=== PATIENT | female | born 1990 | race Caucasian/White ===

== ENCOUNTER 2019-08-07 14:09 | Outpatient (RCR) | payer OTHER, SELFPAY ==
[2019-08-09] MEDS: RHO(D) IMMUNE GLOBULIN 300 MCG SYRINGE IM (14:38)
== END 2019-11-05 23:59 | disposition home or self-care (01) ==
LOC: ANHLAB 14:09
PROVIDERS: PCP Family Medicine; Visit Provider Obstetrics & Gynecology
DX: Z29.13 Encounter for prophylactic Rho(D) immune globulin (principal); O36.0990 Maternal care for other rhesus isoimmunization, unspecified trimester, not applicable or unspecified; Z3A.00 Weeks of gestation of pregnancy not specified
CPT/HCPCS: 36415; 85461; 90384; 96372; J2790

== ENCOUNTER 2019-10-19 21:05 | Observation (INO) | payer OTHER, SELFPAY ==
--- NOTE | 2019-10-19 21:05 | OBADM ---
This patient, Paris Parra, admitted to the OB room Labor/Delivery/Recovery 119 for observation. Patient/family oriented to hospital policies and general routines including ID bracelet, bed and alarms, visiting hours, pain management, procedures, bathroom and other care routines, personal items, smoking policy, room service/diet, and visiting hours. Patient/Family are encouraged to report perceived risks to care and to ask questions if they do not understand what they are told or what they should do.
[2019-10-19 22:16] VITALS: TEMP 36.6
--- NOTE | 2019-10-19 22:44 | PC.NURSE ---
Updated Dr. Tam on maternal assessment; including contractions, SVE, vital signs and FHT. Orders received.
[2019-10-19] MEDS: DEXTROSE 5%/LACTATED RINGERS 1,000 ML 999 ML IV CONT (23:08)
--- NOTE | 2019-10-19 23:57 | PC.NURSE ---
updated Dr. Tam of maternal assessment. Patient contractions decreased following IV fluid bolus. Patient states she is feeling better following fluids. Discharge orders received.
[2019-10-20 00:11] VITALS: BP 123/78; PULSE 112
--- NOTE | 2019-10-20 07:28 | PM.OBTRLD ---
OB - Triage/Final Diagnosis Visit Information Date of evaluation: 10/19/19 Reason for evaluation: threatened labor Evaluation Vital signs: Vital Signs - 24 hr 10/19/19 22:16 10/20/19 00:11 Temperature 97.9 F Pulse Rate 112 H Blood Pressure 123/78
== END 2019-10-20 00:10 | disposition home or self-care (01) ==
PROVIDERS: Admitting Provider Obstetrics & Gynecology; PCP Family Medicine; Visit Provider Obstetrics & Gynecology
DX: O47.1 False labor at or after 37 completed weeks of gestation (principal); Z3A.38 38 weeks gestation of pregnancy
CPT/HCPCS: 96360; G0378; G0379; J7121

== ENCOUNTER 2019-10-23 12:05 | Outpatient (CLI) | payer OTHER, SELFPAY ==
[2019-10-23 12:37] LABS: Hematocrit 33.9 % (37.0-47.0); Hemoglobin 11.8 g/dL (12.0-15.0); Mean Corpuscular HGB Conc 34.8 g/dl (32-36); Mean Corpuscular Hemoglobin 31.2 pg (26-34); Mean Corpuscular Volume 89.7 fl (80-100); Mean Platelet Volume 11.3 fl (7.4-10.4); Platelet Count Result 265 k/mm3 (150-375); Red Blood Count 3.78 M/mm3 (4.2-5.4); Red Cell Distribution Width 13.4 % (11.5-14.5); White Blood Count 11.4 K/mm3 (4.5-10.0)
[2019-10-24 09:31] LABS: Rapid Plasma Reagin Non-Reactive (NonReactive)
== END 2019-10-23 12:06 | disposition home or self-care (01) ==
PROVIDERS: PCP Family Medicine; Visit Provider Obstetrics & Gynecology
DX: Z01.818 Encounter for other preprocedural examination (principal)
CPT/HCPCS: 36415; 85027; 86592; 86850; 86880; 86900; 86901; 86902

== ENCOUNTER 2019-10-24 11:23 | Inpatient (IN) | payer OTHER, SELFPAY ==
--- NOTE | 2019-10-02 14:13 | PC.NURSE ---
VERIFIED WITH OR SCHEDULE AND PATIENT--C/S ON 10/24/19 AT 1330 PATIENT GIVEN REQUISITION FOR LAB DRAW ON 10/23/19
--- NOTE | 2019-10-19 23:45 | WPDANESEPPF ---
Anes - Initial Pre Proc Eval Procedure: Operation Date: 10/24/19 13:30 Proposed Procedures p Repeat Section - Levon Koch MD Date/Time: 10/19/19 23:45 Surgeon: Levon Koch MD Pre Op Diagnosis: Pre-admit Patient Data Age: 29 Gender: F Height: Weight: Allergies Allergy/AdvReac Type Severity Reaction Status Date / Time gluten Allergy Gastrointestinal Verified 10/02/19 13:42 Upset latex Allergy Itching Verified 10/02/19 13:42 pineapple Allergy Numbness Verified 10/02/19 13:42 Patient hx anesthesia problems: none Family hx anesthesia problems: none PMFSH Surgical History Surgical History (Updated 10/19/19 @ 23:46 by Rachid Larson MD) History of section Family History Family History Other Unknown family medical history Social History Social History Substance use: never Spiritual care concerns: No Anes - Eval Final PreProcedure Day of Procedure 10/19/19 23:45 Patient weight: overweight Heart: regular rate and rhythm Lungs: clear to auscultation Airway: Mallampati scale class II Neurological: alert and oriented Last oral intake: 4 hours ASA classification: II Emergent: no Anesthetic plan: proceed Anesthesia type and monitoring: regional spinal and standard monitoring Informed Consent: The patient's anesthetic plan and its attendant risks and benefits were discussed with the patient/family/POA. Questions were solicited and answers provided to the satisfaction of the patient/family/POA.
--- NOTE | 2019-10-23 22:53 | P.HP_ITS ---
H&P: HPI History of Present Illness Date/Time: 10/23/19 22:53 Chief complaint: Pre-admit Narrative: 29 y/o at 39 2/7 weeks here for repeat . She has had a prior and desires repeat . GBS neg. Review of Systems Review of Systems: All systems reviewed & are unremarkable except as noted in HPI and below PMFSH Past Medical History Medical History Gestational hypertension Hx of migraines Surgical History Surgical History History of section Family History Family History Other Unknown family medical history Social History Social History Substance use: never Spiritual care concerns: No Meds Home Medications and Allergies Allergies Allergy/AdvReac Type Severity Reaction Status Date / Time gluten Allergy Gastrointestinal Verified 10/20/19 00:24 Upset latex Allergy Itching Verified 10/20/19 00:24 pineapple Allergy Numbness Verified 10/20/19 00:24 Exam Const: Orientation/consciousness: patient oriented x3 Other: Well- developed, well-nourished female in no acute distress. Neck: Thyroid: thyroid normal Lymphatic: no lymphadenopathy noted (in neck, axilla or inguinal nodes) Resp: Effort & Inspection: normal respiratory effort Auscultation: clear to auscultation bilaterally Cardio: Rate: regular rate Rhythm: regular rhythm Heart sounds: S1 normal heart sound present and S2 normal heart sound present GI: Other: ABD: Soft, nontender, nondistended, gravid. FHR ausculatated. FH 39cm. : General: Yes no CVA tenderness Other: Cervix closed / thick. Back/Spine/Pelvis: Back: no CVA tenderness Skin: General skin exam: normal color and no rashes or lesions noted Neuro: General: patient oriented x3 Extrem: Other: Extremities: nontender with no edema Psych: Mental Status: mental status grossly normal Affect: normal affect Assessment and Plan Assessment and plan (1) History of section: Code(s): Z98.891 - History of uterine scar from previous surgery Status: Acute Assessment and Plan: A: IUP at 39 2/7 weeks Prior , desiring repeat. P: She desires repeat . She understands risks of surgery to include risks of anesthesia, risks of pain, infection, bleeding, blood products, thromboembolic phenomena and damage to adjacent structures such as bowel, bladder, ureters, blood vessels and nerves. She understands all these risks and elects to proceed with surgery.
[2019-10-24] VITALS (63 sets, daily range): BP systolic 59–131; BP diastolic 37–92; PULSE 63–154; RESP 12–20; TEMP 36.2–37.4; O2SAT 97–100; BMI 33.8
[2019-10-24] MEDS: LACTATED RINGERS 1,000 ML 125 ML IV CONT ×2 (12:19→13:14)
--- NOTE | 2019-10-24 12:44 | WPDANESEPPF ---
Anes - Initial Pre Proc Eval Procedure: Operation Date: 10/24/19 13:30 Proposed Procedures p Repeat Section - Levon Koch MD Date/Time: 10/24/19 12:44 Surgeon: Levon Koch MD Pre Op Diagnosis: scheduled Patient Data Age: 29 Gender: F Height: 5 ft 2 in Weight: 84 kg Last Vital Signs Temp 37.4 C 10/24/19 12:26 Pulse 103 H 10/24/19 12:26 Resp 20 10/24/19 12:26 BP 123/87 10/24/19 12:26 Allergies Allergy/AdvReac Type Severity Reaction Status Date / Time gluten Allergy Gastrointestinal Verified 10/20/19 00:24 Upset latex Allergy Itching Verified 10/20/19 00:24 pineapple Allergy Numbness Verified 10/20/19 00:24 Home Medications Medication Instructions Recorded Confirmed Type PNV cmb#95-ferrous fumarate-FA 1 tablet PO DAILY 10/24/19 10/24/19 History [] Patient hx anesthesia problems: none Family hx anesthesia problems: none PMFSH Past Medical History Medical History Gestational hypertension Hx of migraines Surgical History Surgical History History of section Family History Family History Other No known health problems Social History Social History Smoking status: Never smoker Second hand tobacco smoke exposure: No Substance use: never Spiritual care concerns: No Anes - Eval Final PreProcedure Day of Procedure 10/24/19 12:44 Patient weight: overweight Heart: regular rate and rhythm Lungs: clear to auscultation Airway: Mallampati scale class II Neurological: alert and oriented Last oral intake: >/= 8 hours ASA classification: II Emergent: no Anesthetic plan: proceed Anesthesia type and monitoring: regional spinal and standard monitoring Informed Consent: The patient's anesthetic plan and its attendant risks and benefits were discussed with the patient/family/POA. Questions were solicited and answers provided to the satisfaction of the patient/family/POA.
--- NOTE | 2019-10-24 13:14 | WPDHPUPDATE1 ---
History and Physical Update Update Date/Time: 10/24/19 13:14 History and Physical has been reviewed, including an updated exam of the patient. There are NO changes in the patient's condition. Risks, benefits, and alternatives have been discussed and questions answered. Patient agrees to proceed with procedure.
[2019-10-24] MEDS: ceFAZolin 2 GM/D5W 50 ML 2 GM/50 ML BAG IVPB (13:36)
--- NOTE | 2019-10-24 14:51 | PM.OBPRVD ---
OB - Delivery Note Procedure Procedure: Procedures Operation Date: 10/24/19 13:30 Actual Procedures Side Surgeon p Repeat Section Not Applicable Levon Koch MD Delivery monitor: external FHT and external uterine Route of delivery: Estimated blood loss (mL): 510 Anesthesia type: Spinal Disposition: PACU Complications: None Narrative: The patient was taken to the operating room where she was prepared and draped in the usual sterile fashion in dorsal supine position with a leftward tilt. She received cefazolin preoperatively. Spinal anesthesia was found to be adequate. A Pfannenstiel skin incision was made, excising and discarding the old scar, then carrying through to the underlying layer of the fascia. The fascia was incised in the midline and the incision was extended laterally. The fascia was dissected free of the underlying rectus muscles. The rectus muscles were in the midline. The peritoneum was identified, tented up and entered sharply. The peritoneal incision was extended superiorly and inferiorly with good visualization of the bladder. The bladder blade was placed. The vesicouterine peritoneum was identified, tented up and entered sharply. The incision was extended laterally and the bladder flap was developed. The bladder blade was replaced. The uterus was then incised sharply in a transverse fashion along the lower uterine segment. The incision was extended laterally. The 's head was delivered atraumatically to the sterile field, followed by the body. The nose and mouth were bulb suctioned. After a delay, the cord was clamped and cut. The was handed off the field. Cord blood was collected. The placenta was removed manually and was passed off the field. The uterus was exteriorized and cleared of all clots and debris. The uterine incision was reapproximated using 0 Monocryl in a running, locked fashion. Excellent hemostasis resulted as did excellent reapproximation of the normal anatomy. The uterus was returned the abdomen. The pelvis was irrigated copiously with warmed normal saline. Rigorous hemostasis was assured. The fascial layer was reapproximated using 0 Vicryl in a running fashion. The skin was closed with a running, subcuticular stitch of 4 0 Vicryl. Dermaflex was applied externally. Sponge, lap, needle and instrument counts were correct. The patient was taken to the recovery room in stable condition. The went to the nursery in stable condition. I was present and scrubbed the entire procedure. Baby Date of : 10/24/19 Time of : 14:11 Weeks of gestation at delivery: 39 gender: Female Weight (pounds): 7 Weight (ounces): 11 presentation: vertex Placenta delivery description: Manual Removal and Normal Configuration cord vessel description: 3 Vessels score one minute: 6 score five minutes: 8
[2019-10-24] MEDS: DOCUSATE SODIUM 100 MG CAPSULE PO (17:20)
[2019-10-24] MEDS: IBUPROFEN 600 MG TABLET PO (17:20)
[2019-10-24] MEDS: DEXTROSE 5%/0.45% SOD CHL 1,000 ML 125 ML IV CONT (21:10)
[2019-10-25] MEDS: IBUPROFEN 600 MG TABLET PO ×3 (03:43→17:56)
[2019-10-25] MEDS: SIMETHICONE 80 MG TAB.CHEW PO ×6 (03:45→21:24)
[2019-10-25 04:45] VITALS: BP 108/66; PULSE 70; RESP 16; TEMP 36.8; O2SAT 99
[2019-10-25 05:33] LABS: Basophils Percent Auto 0.2 % (0.2-1.2); Eosinophils Percent Auto 0.1 % (0-4.4); Hematocrit 26.9 % (37.0-47.0); Hemoglobin 9.2 g/dL (12.0-15.0); Immature Granulocyte Percent A 0.6 % (0-0.5); Lymphocytes Absolute Auto 1.86 K/mm3 (0.9-3.2); Lymphocytes Percent Auto 11.8 % (18.3-44.2); Mean Corpuscular HGB Conc 34.2 g/dl (32-36); Mean Corpuscular Hemoglobin 31.1 pg (26-34); Mean Corpuscular Volume 90.9 fl (80-100); Mean Platelet Volume 11.4 fl (7.4-10.4); Monocytes Absolute Auto 1.7 K/mm3 (0.1-0.6); Monocytes Percent Auto 10.6 % (2.6-8.5); Neutrophils Absolute Auto 12.1 K/mm3 (1.3-6.7); Neutrophils Percent Auto 76.7 % (45.5-73.1); Platelet Count Result 243 k/mm3 (150-375); Red Blood Count 2.96 M/mm3 (4.2-5.4); Red Cell Distribution Width 13.3 % (11.5-14.5); White Blood Count 15.8 K/mm3 (4.5-10.0)
--- NOTE | 2019-10-25 07:27 | WPDANLDPN2 ---
Anes-Prog Note L&D Date/Time: 10/25/19 07:27 Comfortable throughout: section Neuraxial method: spinal Epidural/Spinal procedure site: clean & non-tender Neuro status: Neuro function grossly intact. Cardiovascular status: normal Respiratory status: normal Airway patency: baseline Mental status: baseline Post-Op hydration status: normal Vital Signs: Last Vital Signs Temp 36.8 C 10/25/19 04:45 Pulse 70 10/25/19 04:45 Resp 16 10/25/19 04:45 BP 108/66 10/25/19 04:45 Pulse Ox 99 10/25/19 04:45 I/O: Intake & Output 10/24/19 10/24/19 10/25/19 15:59 23:59 07:59 Intake Total 1150 1200 Output Total 710 1439 4601 Balance 440 -228 -1869 Post-procedural complaints: none Patient feedback: Patient satisfied with anesthetic care.
--- NOTE | 2019-10-25 07:28 | WPDANLDNPN2 ---
Anes-Prog Note L&D-Neuraxial Date/Time: 10/25/19 07:28 Neuraxial medications: intrathecal PF morphine Patient feedback: Patient satisfied with post-operative pain management.
--- NOTE | 2019-10-25 07:53 | P.DS_ITS ---
DS: Admitting Diagnosis Admitting Diagnosis Admitting Diagnosis: IUP at 39 weeks Prior DS: Discharge Diagnosis Discharge Diagnosis (1) History of section: Code(s): Z98.891 - History of uterine scar from previous surgery Status: Acute OB - DS: Summary OB Procedures : None OB Procedures Intrapartum: OB Procedures: : None Peripartum Data Procedures: Procedures Operation Date: 10/24/19 13:30 Actual Procedures Side Surgeon p Repeat Section Not Applicable Levon Koch MD DS: Data Data Completed and Pending Labs on day of discharge: Labs from last 24 hours 10/25/19 10/25/19 04:50 04:50 WBC 15.8 H RBC 2.96 L Hgb 9.2 L Hct 26.9 L MCV 90.9 MCH 31.1 MCHC 34.2 RDW 13.3 Plt Count 243 MPV 11.4 H Immature Gran % (Auto) 0.6 H Neut % (Auto) 76.7 H Lymph % (Auto) 11.8 L [place] % (Auto) 10.6 H Eos % (Auto) 0.1 Baso % (Auto) 0.2 Lymph # (Auto) 1.86 [place] # (Auto) 1.7 H Eos # (Auto) 0.0 Baso # (Auto) 0.0 Abs Immat Gran (auto) 0.10 H Absolute Neuts (auto) 12.1 H Absolute Nucleated RBC 0.0 Nucleated RBC % 0.0 Blood Type Pending Antibody Screen TNP Screen Pending Baby's Blood Type O pos Baby's ALEX Negative Doses of RhIg Required Pending Discharge Plan Discharge Attending physician on discharge: Levon Koch Discharging Clinician: Levon Koch Patient Disposition: Home, Self-Care Activity: may shower, may drive after 2 weeks and pelvic rest Diet: regular Wound Care Instructions: incision open to air Discharge Instructions: Call or return if temperature above 100.4? F, increased abdominal pain, increased vaginal bleeding or any new problems. Stand Alone Forms: General Discharge Information Follow-up/Referrals: Levon Koch MD [Physician] - (4 weeks) Discharge Medications: New ibuprofen 600 mg tablet 600 mg PO Q6H PRN (Reason: cramps) Qty: 30 RF: 0 hydrocodone-acetaminophen [[place]] 5-325 mg tablet 1 - 2 tablet PO Q6H PRN (Reason: pain) Qty: 30 RF: 0 ferrous sulfate 325 mg (65 mg iron) tablet 325 mg PO DAILY Qty: 30 RF: 0 No Action PNV cmb#95-ferrous fumarate-FA [] 28 mg iron- 800 mcg Tablet 1 tablet PO DAILY RF: 0 Date of admission: 10/24/19 11:23 Primary Care Provider: Hailey,Marcela Reagan Admitting Provider: Levon Koch Attending physician on admission: Levon Koch
--- NOTE | 2019-10-25 07:53 | PM.OBPNVD ---
OB - PN: Subj Subjective Date/time seen: 10/25/19 07:53 Narrative: Pain OK. Tolerating diet. OB - PN: Obj Data Labs CBC & Chem 7: 10/25/19 04:50 Labs: Laboratory Results - last 24 hr 10/25/19 10/25/19 04:50 04:50 WBC 15.8 H RBC 2.96 L Hgb 9.2 L Hct 26.9 L MCV 90.9 MCH 31.1 MCHC 34.2 RDW 13.3 Plt Count 243 MPV 11.4 H Immature Gran % (Auto) 0.6 H Neut % (Auto) 76.7 H Lymph % (Auto) 11.8 L [place] % (Auto) 10.6 H Eos % (Auto) 0.1 Baso % (Auto) 0.2 Lymph # (Auto) 1.86 [place] # (Auto) 1.7 H Eos # (Auto) 0.0 Baso # (Auto) 0.0 Abs Immat Gran (auto) 0.10 H Absolute Neuts (auto) 12.1 H Absolute Nucleated RBC 0.0 Nucleated RBC % 0.0 Antibody Screen TNP Baby's Blood Type O pos Baby's ALEX Negative OB - PN A/P Plan Comments: A: POD#1, doing well. P: Routine care. Exam Narrative: Exam Narrative: AVSS I/O OK ABD soft, nontender, fundus firm. Incision c/d/i. EXT nontender
[2019-10-25 08:15] VITALS: BP 104/63; PULSE 70; RESP 16; TEMP 36.6; O2SAT 99
[2019-10-25] MEDS: MULTIVIT/MIN/PREN/FOL AC/IRON TABLET 1 TAB PO (08:29)
[2019-10-25] MEDS: DOCUSATE SODIUM 100 MG CAPSULE PO ×2 (08:29→17:55)
[2019-10-25] MEDS: POLYSACCHARIDE IRON COMPLEX 150 MG CAPSULE PO ×2 (08:29→17:55)
[2019-10-25] MEDS: RHO(D) IMMUNE GLOBULIN 300 MCG SYRINGE IM (10:51)
[2019-10-25 11:30] VITALS: BP 103/69; PULSE 79; RESP 18; TEMP 36.4; O2SAT 98
--- NOTE | 2019-10-25 15:45 | PC.NURSE ---
Consulted with patient, mother states has been spitty and was not eagerly . Parents began with supplementation after a few feedings. Infant is taking up to 30 mls. Mother reports infant is more awake and less spitty to day. Mother is concerned she does not have colostrum. Demonstrated self expression, colostrum easily expresses. is at bedside showing feeding cues. Reviewed feeding cues, frequencies, duration of feedings, feeding elimination flow sheet, and signs of adequate intake. Demonstrated stimulation techniques to wake for feeding. Assisted with to breast. Reviewed positioning/alignment in cross cradle, holding breast in U hold and guided asymmetrical latch on. Infant was able to latch correctly. nursed eagerly, with steady draws and frequent swallowing noted. Reviewed signs of a correct latch, effective nursing and suck swallow ratio. would pull back and release latch while feeding. Advised to give slight resistance when draws back and to compress breast while bring infant forward to latch. Mother independently corrected. was able to maintain latch without discomfort to mother. Nipple care reviewed. Advised to stimulate to keep awake and nursing effectively for increased intake and to assist with maintaining deep latch. Instructed mother to call out for RN assistance if she is unable to latch infant for feeding or she has discomfort with nursing. Instructed feeding should be initiated three hours from start of last feeding or if feeding cues are noted before. Mother voiced understanding of information shared. Parents state they will continue to offer supplement after breastfeedings. Suggested to offer both breast and attempt to limit supplement to 15mls.
--- NOTE | 2019-10-25 16:34 | PC.NURSE ---
Addendum entered by Virgil Trent RN 10/25/19 16:34: actual time was 1452 Original Note: PT introductions made and plan of care discussed per post op c section, pain management, breast feeding, daily care activities. PT verbalized understanding of such care.
[2019-10-25] MEDS: LANOLIN (LANSINOH) 7.5 GM CREAM 1 APPLIC TOPICAL (18:02)
[2019-10-25 20:50] VITALS: BP 106/69; PULSE 80; RESP 16; TEMP 36.1; O2SAT 99
[2019-10-26] MEDS: IBUPROFEN 600 MG TABLET PO ×4 (00:48→22:40)
[2019-10-26] MEDS: DOCUSATE SODIUM 100 MG CAPSULE PO ×2 (07:54→16:40)
[2019-10-26] MEDS: MULTIVIT/MIN/PREN/FOL AC/IRON TABLET 1 TAB PO (07:55)
[2019-10-26] MEDS: POLYSACCHARIDE IRON COMPLEX 150 MG CAPSULE PO ×2 (07:55→16:40)
[2019-10-26 08:10] VITALS: BP 104/70; PULSE 82; RESP 18; TEMP 36.6; O2SAT 98
--- NOTE | 2019-10-26 08:49 | PM.OBPNVD ---
OB - PN: Subj Subjective Date/time seen: 10/26/19 08:49 Narrative: Pain OK. Tolerating diet. OB - PN: Obj Data Labs CBC & Chem 7: 10/25/19 04:50 Labs: Laboratory Results - last 24 hr 10/25/19 04:50 Blood Type A Negative Antibody Screen TNP Screen Negative Baby's Blood Type O pos Baby's ALEX Negative Doses of RhIg Required 1 OB - PN A/P Plan Comments: A: POD#2, doing well. P: Routine care. Exam Narrative: Exam Narrative: AVSS I/O OK ABD soft, nontender, fundus firm. Incision c/d/i. EXT nontender
--- NOTE | 2019-10-26 10:30 | PC.NURSE ---
Mother is able to independently latch infant with appropriate positioning/alignment. She denies any nipple discomfort, is feeding as required and waking to feed if needed. has had several effective feedings in the past 24 hours, and is currently meeting outcomes for weight, output, jaundice and feeding frequencies. Mother chooses to supplement at times after , reporting she is supplementing less and less often, as infant is more satisfied with . Mother feels her milk is transitioning in. Mother states she feels confident to continue effective at home. Reviewed transition to breast milk, signs of adequate intake, and engorgement/relief. Instructed to call ICP if intake/output less than required. Reviewed regular medications mother is taking. Information provided per [place]. Reviewed community resources on the [facility] website and in the Mom/Baby guide. Information on outpatient services provided. Mother has no further questions at this time.
[2019-10-26] MEDS: SIMETHICONE 80 MG TAB.CHEW PO ×3 (15:40→22:40)
[2019-10-26 19:05] VITALS: BP 126/77; PULSE 86; RESP 16; TEMP 36.8
[2019-10-27] MEDS: SIMETHICONE 80 MG TAB.CHEW PO ×4 (01:50→12:51)
[2019-10-27] MEDS: IBUPROFEN 600 MG TABLET PO ×2 (05:05→12:52)
[2019-10-27 09:00] VITALS: BP 118/76; PULSE 81; RESP 16; RESP 18; TEMP 36.5; O2SAT 100
--- NOTE | 2019-10-27 09:00 | PC.NURSE ---
Patient viewed the discharge video Mother & Baby Care, The First Two Weeks . Patient was given the opportunity and encouraged to ask questions. Patient verbalized understanding of information shared and has been given the mother/baby guide for home reference.
--- NOTE | 2019-10-27 09:00 | PC.NURSE ---
PT introductions made and plan of care discussed per post op c section, pain management, breast feeding, daily care activities and pending discharge to home. PT verbalized understanding of such care.
[2019-10-27] MEDS: DOCUSATE SODIUM 100 MG CAPSULE PO (09:15)
[2019-10-27] MEDS: POLYSACCHARIDE IRON COMPLEX 150 MG CAPSULE PO (09:15)
[2019-10-27] MEDS: MULTIVIT/MIN/PREN/FOL AC/IRON TABLET 1 TAB PO (09:15)
--- NOTE | 2019-10-27 12:09 | PM.OBPNVD ---
OB - PN: Subj Subjective Date/time seen: 10/27/19 12:09 Narrative: Pain OK. Tolerating diet. Would like to go home. OB - PN: Obj Data Labs CBC & Chem 7: 10/25/19 04:50 OB - PN A/P Plan Comments: A: POD#2, doing well. P: Home to f/u 4 weeks. Exam Narrative: Exam Narrative: AVSS ABD soft, nontender, fundus firm. Incision c/d/i. EXT nontender
--- NOTE | 2019-10-27 13:30 | PC.NURSE ---
PT received discharge instructions per protocol and verbalized understanding of such instructions.
--- NOTE | 2019-10-27 14:20 | PC.NURSE ---
PT discharged to home ambulatory accompanied by spouse and and taken to waiting car. Follow up appts confirmed
[2019-10-29 08:57] VITALS: BP 126/84; PULSE 86; RESP 16; TEMP 37; O2SAT 99
[2019-10-29 09:32] VITALS: BP 126/84; PULSE 86; RESP 16; TEMP 37; O2SAT 99
== END 2019-10-27 14:20 | disposition home or self-care (01) | DRG 788 ==
LOC: ANHLDR 14:58 → ANHOB2 17:07
PROVIDERS: Admitting Provider Obstetrics & Gynecology; PCP Family Medicine; Visit Provider Obstetrics & Gynecology
PROC: 10D00Z1 Extraction of Products of Conception, Low, Open Approach (ICD-10-PCS; CPT 59514; principal; 2019-10-24 13:30)
DX: O34.211 Maternal care for low transverse scar from previous cesarean delivery (principal); Z37.0 Single live birth; Z3A.39 39 weeks gestation of pregnancy; O13.4 Gestational [pregnancy-induced] hypertension without significant proteinuria, complicating childbirth
CPT/HCPCS: 36415; 85025; 85027; 85461; 86592; 86850; 86880; 86900; 86901; 90384; A9270; J0131; J0690; J1100; J2274; J2370; J2405; J2790; J7120

== ENCOUNTER 2019-11-30 13:21 | Emergency (ER) | payer OTHER, SELFPAY ==
[2019-11-30] VITALS (21 sets, daily range): BP systolic 116–133; BP diastolic 82–100; PULSE 78–115; RESP 12–34; TEMP 37.2; O2SAT 98–100
--- NOTE | ~2019-11-30 | XR_ITS ---
XR chest 2V DATE: 11/30/2019 15:20 INDICATION: Left and right chest pain starting 2 weeks ago. Recent section. TECHNIQUE: PA and lateral views COMPARISON: None FINDINGS: Normal heart size. No hilar or mediastinal enlargement. No pulmonary infiltrate or consolid ation, pleural effusion or pulmonary vascular congestion or pneumothorax. Included skeletal structure s are unremarkable. IMPRESSION: Negative Reviewed, dictated and finalized at location B. IMPRESSION: Negative
--- NOTE | 2019-11-30 13:23 | ED.CHESTPAIN ---
HPI - Chest Pain General Chief Complaint: Dizziness Stated Complaint: Left Shoulder Pain, Chest Pain Time Seen by Provider: 11/30/19 13:23 History of Present Illness HPI narrative: 29 yo female presents from [facility] for dizziness. She has been intermittently dizzy since waking up this morning. She reports it as a spinning feeling. She has it even when she closes her eys and lays down. This is associated with nausea and at least 1 episode of vomiting. She also reports intermittent pain in the posterior aspect of the left shoulder radiating into the upper back. She has also had a few breif episodes of sharp substernal chest pain. She gave by October 23. No pain or swelling in the calfs. No SOB. Related Data Home Medications Medication Instructions Recorded Confirmed PNV cmb#95-ferrous fumarate-FA 1 tablet PO DAILY 10/24/19 10/24/19 [] lactobacillus combination no.8 11/30/19 [Adult Probiotic] omega 6-frx-ynm-fish oil [Fish Oil] cap PO 11/30/19 Allergies Allergy/AdvReac Type Severity Reaction Status Date / Time gluten Allergy Gastrointestinal Verified 11/30/19 14:43 Upset latex Allergy Itching Verified 11/30/19 14:43 pineapple Allergy Numbness Verified 11/30/19 14:43 Review of Systems Review of Systems: All systems reviewed & are unremarkable except as noted in HPI and below Constitutional: Constitutional: Denies chills, Denies fever(s) and Denies weakness Eyes: Eyes: Denies change in vision ENT: Reports dizziness Cardiovascular: Cardiovascular: Reports chest pain and Reports radiating jaw, neck or arm pain Respiratory: Respiratory: Denies cough and Denies dyspnea Gastrointestinal: Gastrointestinal: Reports nausea and Reports vomiting Genitourinary: Genitourinary: Denies abnormal vaginal bleeding, Denies hematuria, Denies dysuria and Denies vaginal discharge Musculoskeletal: Musculoskeletal: Reports back pain Neurologic: Reports dizziness [facility] Social History Social History Smoking status: Never smoker Second hand tobacco smoke exposure: No Substance use: never Spiritual care concerns: No Exam Const: General: healthy appearing, no acute distress and alert Orientation/consciousness: patient oriented x3 HENMT: Head: normal to inspection Neck: Neck: normal visual inspection and no lymphadenopathy Chest: Chest palpation & inspection: no tenderness Resp: Effort & Inspection: normal respiratory effort Auscultation: clear to auscultation bilaterally, no rales, no rhonchi and no wheezes Cardio: Jugular venous distension: no JVD Rate: regular rate Rhythm: regular rhythm Heart sounds: no murmurs GI: Inspection: non-distended GI Palp: Yes Soft to palpation and No Tenderness to palpation present (GI) Skin: General skin exam: normal color Neuro: General: patient oriented x3 and moves all extremities Speech: normal speech Extrem: General: no edema Psych: Appearance: well kempt Affect: normal affect Course Vital Signs Vital signs: Vital Signs Pulse Rate 97 11/30/19 13:27 Respiratory Rate 12 11/30/19 13:27 Blood Pressure 125/96 H 11/30/19 13:27 Pulse Oximetry 100 11/30/19 13:27 Temperature 37.2 C 11/30/19 13:29 Pulse Rate 78 11/30/19 16:01 Respiratory Rate 14 11/30/19 16:01 Blood Pressure 119/82 11/30/19 16:01 Pulse Oximetry 100 11/30/19 16:01 MDM - Chest Pain Differential Diagnosis Differential diagnosis: Likely pneumothorax, costochondritis, chest pain and other Medical Records Data Attestation: I reviewed the patient's medical records. Lab Data Attestation: I reviewed the patient's lab results. Result diagrams: 11/30/19 13:37 11/30/19 13:37 Labs: Lab Results 11/30/19 11/30/19 Range/Units 13:37 13:37 WBC 12.0 H (4.5-10.0) K/mm3 RBC 4.38 (4.2-5.4) M/mm3 Hgb 13.1 D (12.0-15.0) g/dL Hct 39.1 (37.0-47
--- NOTE | 2019-11-30 13:32 | ECG_ITS ---
Measurements Intervals [place] Rate: 106 P: 44 CO: 154 QRS: 56 QRSD: 82 T: -16 QT: 329 QTc: 438 Interpretive Statements SINUS TACHYCARDIA EARLY PRECORDIAL R/S TRANSITION ST-T WAVE ABNORMALITY IN ANTEROLAT/INF LEADS- CONSIDER ISCHEMIA BASELINE ARTIFACT- I, II ABNORMAL ECG Electronically Signed On 11-30-2019 14:32:03 CDT by Onel Meléndez D.O.
[2019-11-30 13:42] LABS: Basophils Percent Auto 0.3 % (0.2-1.2); Eosinophils Percent Auto 0.3 % (0-4.4); Hematocrit 39.1 % (37.0-47.0); Hemoglobin 13.1 g/dL (12.0-15.0); Immature Granulocyte Absolute 0.03 K/mm3 (0.00-0.031); Immature Granulocyte Percent A 0.3 % (0-0.5); Lymphocytes Absolute Auto 1.68 K/mm3 (0.9-3.2); Mean Corpuscular HGB Conc 33.5 g/dl (32-36); Mean Corpuscular Hemoglobin 29.9 pg (26-34); Mean Corpuscular Volume 89.3 fl (80-100); Mean Platelet Volume 10.6 fl (7.4-10.4); Monocytes Absolute Auto 0.5 K/mm3 (0.1-0.6); Monocytes Percent Auto 4.2 % (2.6-8.5); Neutrophils Absolute Auto 9.7 K/mm3 (1.3-6.7); Neutrophils Percent Auto 80.9 % (45.5-73.1); Platelet Count Result 317 k/mm3 (150-375); Red Blood Count 4.38 M/mm3 (4.2-5.4); Red Cell Distribution Width 12.9 % (11.5-14.5)
[2019-11-30 13:54] LABS: Anion Gap 10 mmol/L (8-16); Blood Urea Nitrogen 15 mg/dL (7-17); Calcium 9.5 mg/dL (8.4-10.2); Carbon Dioxide 27 mmol/L (22-30); Chloride 105 mmol/L (98-107); Estimated CRCL calculation 91 ml/min; Estimated Glomerular Filt Rate > 60; Glucose 100 mg/dL (65-105); Sodium 142 mmol/L (137-145)
[2019-11-30 14:06] LABS: Troponin I < 0.012 ng/mL (0.000-0.034)
[2019-11-30] MEDS: SODIUM CHLORIDE 0.9% IV 1,000 ML 999 ML IV CONT (14:31)
[2019-11-30] MEDS: MECLIZINE HCL 25 MG TABLET PO (14:31)
== END 2019-11-30 16:35 | disposition home or self-care (01) ==
PROVIDERS: Emergency Provider Emergency Medicine; PCP Family Medicine
DX: R42 Dizziness and giddiness (principal); R07.89 Other chest pain; M54.6 Pain in thoracic spine; R00.0 Tachycardia, unspecified; R94.31 Abnormal electrocardiogram [ECG] [EKG]
CPT/HCPCS: 36415; 71046; 80048; 84484; 85025; 93005; 96360; 96361; 99284; A9270; J7030

== ENCOUNTER 2019-12-03 21:21 | Emergency (ER) | payer OTHER, SELFPAY ==
--- NOTE | ~2019-12-03 | CT_ITS ---
EXAMINATION: CT brain wo con DATE: 12/04/2019 02:33 INDICATION: Dizziness, lightheadedness. TECHNIQUE: Computed tomography (CT) of the head was performed without intravenous contrast. The mA wa s adjusted according to patient size. Iterative reconstruction technique was employed. Exam dose: 60 5.33 mGy-cm total exam DLP. COMPARISON: None FINDINGS: No intracranial mass lesion or hemorrhage or cerebrovascular accident. Normal ventricular s ize. No midline shift or mass effect. No subdural or epidural hematoma. No fracture or bone destruction of the cranial vault. The mastoid air cells and included paranasal sinuses are normally developed and aerated. No fracture or bone destruction of the cranial vault. IMPRESSION: No significant abnormality Reviewed, dictated and finalized at [facility]. Reviewed, dictated and finalized at location [facility]. IMPRESSION: No significant abnormality
--- NOTE | ~2019-12-03 | XR_ITS ---
EXAMINATION: XR chest 2V DATE: 12/03/2019 22:09 INDICATION: Chest pain and dizziness TECHNIQUE: PA and lateral views of the chest are obtained. COMPARISON: 11/30/2019 FINDINGS: The lungs are free of acute opacities. There is no pleural effusion or pneumothorax. The ca rdiomediastinal silhouette is normal. The visualized bones and soft tissues are unremarkable. IMPRESSION: 1. No acute cardiopulmonary abnormality. Reviewed, dictated and finalized at location [facility].
[2019-12-03 21:22] VITALS: BP 138/101; PULSE 97; RESP 18; TEMP 36.2; O2SAT 100
--- NOTE | 2019-12-03 21:36 | ECG_ITS ---
Measurements Intervals [place] Rate: 78 P: 43 PA: 148 QRS: 38 QRSD: 89 T: 15 QT: 372 QTc: 424 Interpretive Statements SINUS RHYTHM NONSPECIFIC T-WAVE ABNORMALITY- ANT/INF LEADS BORDERLINE ECG Electronically Signed On 12-04-2019 6:39:24 CDT by Onel Meléndez D.O.
[2019-12-03 21:51] LABS: Basophils Percent Auto 0.5 % (0.2-1.2); Eosinophils Absolute Auto 0.1 K/mm3 (0-0.3); Eosinophils Percent Auto 1.3 % (0-4.4); Hematocrit 37.4 % (37.0-47.0); Hemoglobin 12.8 g/dL (12.0-15.0); Immature Granulocyte Absolute 0.02 K/mm3 (0.00-0.031); Immature Granulocyte Percent A 0.3 % (0-0.5); Lymphocytes Absolute Auto 2.27 K/mm3 (0.9-3.2); Lymphocytes Percent Auto 28.4 % (18.3-44.2); Mean Corpuscular HGB Conc 34.2 g/dl (32-36); Mean Corpuscular Hemoglobin 30.4 pg (26-34); Mean Corpuscular Volume 88.8 fl (80-100); Mean Platelet Volume 10.3 fl (7.4-10.4); Monocytes Absolute Auto 0.5 K/mm3 (0.1-0.6); Monocytes Percent Auto 6.5 % (2.6-8.5); Platelet Count Result 335 k/mm3 (150-375); Red Blood Count 4.21 M/mm3 (4.2-5.4); Red Cell Distribution Width 12.8 % (11.5-14.5)
[2019-12-03 22:00] LABS: Prothrombin Time 12.9 Seconds (11.1-14.7)
[2019-12-03 22:02] LABS: Anion Gap 11 mmol/L (8-16); Blood Urea Nitrogen 15 mg/dL (7-17); Calcium 9.6 mg/dL (8.4-10.2); Carbon Dioxide 28 mmol/L (22-30); Chloride 101 mmol/L (98-107); Estimated CRCL calculation 90 ml/min; Estimated Glomerular Filt Rate > 60; Glucose 89 mg/dL (65-105); Potassium 3.9 mmol/L (3.4-5.0); Sodium 140 mmol/L (137-145)
[2019-12-03 22:14] LABS: Troponin I < 0.012 ng/mL (0.000-0.034)
[2019-12-03 23:00] VITALS: BP 128/88; PULSE 88; RESP 17; O2SAT 99
[2019-12-04] VITALS: BP 118/90; PULSE 59; RESP 14; O2SAT 99
[2019-12-04 00:05] VITALS: BP 121/89; BP 134/93; PULSE 63
[2019-12-04 00:06] VITALS: BP 126/92; PULSE 66
[2019-12-04] MEDS: KETOROLAC 30 MG/ML VIAL (*BKC) IV PUSH (00:14)
[2019-12-04] MEDS: SODIUM CHLORIDE 0.9% IV 1,000 ML 999 ML IV CONT ×2 (00:15→02:45)
[2019-12-04 00:55] LABS: Troponin I < 0.012 ng/mL (0.000-0.034)
[2019-12-04] MEDS: MECLIZINE HCL 25 MG TABLET PO (01:32)
--- NOTE | 2019-12-04 01:48 | ED.GENADULT ---
HPI - General Adult General Chief complaint: Back Pain/Injury Stated complaint: back/shoulder pain Time Seen by Provider: 12/03/19 23:08 History of Present Illness HPI narrative: Patient is a 29-year-old female who presents ER with 2 issues. First issue is dizziness. Ongoing for several days. She has rotational spinning dizziness associate with nausea and vomiting. Mildly improved with meclizine at times. Worse with turning head to left and lying back. She also reports while eating dinner try she began to have lightheadedness like she might pass out where things are going black. No abdominal pain or chest pain or racing the heart at that time. Also associated with nausea. Furthermore patient reports that she has been having poor p.o. intake outside of fluid. She reports decreased breast milk production one breast earlier today. Lastly patient reports bilateral back pain between the shoulders. Positional. Improves with pain medication but then returns. Related Data Home Medications Medication Instructions Recorded Confirmed PNV cmb#95-ferrous fumarate-FA 1 tablet PO DAILY 10/24/19 10/24/19 [] lactobacillus combination no.8 11/30/19 [Adult Probiotic] omega 0-res-bhb-fish oil [Fish Oil] cap PO 11/30/19 Allergies Allergy/AdvReac Type Severity Reaction Status Date / Time gluten Allergy Gastrointestinal Verified 11/30/19 14:43 Upset latex Allergy Itching Verified 11/30/19 14:43 pineapple Allergy Numbness Verified 11/30/19 14:43 Review of Systems Review of Systems: All systems reviewed & are unremarkable except as noted in HPI and below Constitutional: Constitutional: Denies chills, Reports fatigue and Denies fever(s) Eyes: Comments: Dizziness ENT: Denies nasal congestion and Denies sore throat Cardiovascular: Cardiovascular: Denies chest pain, Denies rapid heart rate and Denies radiating jaw, neck or arm pain Respiratory: Respiratory: Denies cough and Denies dyspnea Gastrointestinal: Gastrointestinal: Denies abdominal pain, Denies diarrhea, Reports nausea and Reports vomiting Musculoskeletal: Musculoskeletal: Reports back pain and Denies muscle cramps Neurologic: Denies headache(s), Denies focal weakness and Denies numbness PMF Social History Social History Smoking status: Never smoker Second hand tobacco smoke exposure: No Substance use: never Gender identity (if verbalized by the patient): Female Spiritual care concerns: No Exam Narrative: Exam Narrative: GENERAL: Well-appearing, well-nourished, and in no acute distress. HEAD: Normocephalic, atraumatic. EYES: PERRL and EOMI. ENT: TMs normal bilaterally. CHEST: Clear to auscultation. No respiratory distress. HEART: Regular rate and rhythm. Normal peripheral pulses. ABDOMEN: Soft, nontender, nondistended. Back: Paraspinal muscular tenderness over the rhomboid musculature. No scapular midline tenderness. EXTREMITIES: Normal range of motion. No edema. SKIN: Warm, dry, no rash. NEURO: Alert and oriented x3. Course Course Emergency Course: Feels much better after fluids and meclizine. D/c. Vital Signs Vital signs: Vital Signs Temperature 97.2 F L 12/03/19 21:22 Pulse Rate 97 12/03/19 21:22 Respiratory Rate 18 12/03/19 21:22 Blood Pressure 138/101 H 12/03/19 21:22 Pulse Oximetry 100 12/03/19 21:22 Temperature 97.2 F L 12/03/19 21:22 Pulse Rate 56 L 12/04/19 03:07 Respiratory Rate 16 12/04/19 03:07 Blood Pressure 115/78 12/04/19 03:07 Pulse Oximetry 97 12/04/19 03:07 Medical Decision Making Vital Signs Vital Signs: Vital Signs Temperature 97.2 F L 12/03/19 21:22 Pulse Rate 97 12/03/19 21:22 Respiratory Rate 18 12/03/19 21:22 Blood Pressure 138/101 H 12/03/19 21:22 Pulse Oximetry 100 12/03/19 21:22 Temperature 97.2 F L 12/03/19 21:22 Pulse Rate 56 L 12/04/19 03:07 Respiratory Rate 16 1
[2019-12-04 02:00] VITALS: BP 122/81; PULSE 58; RESP 12; O2SAT 99
[2019-12-04 03:07] VITALS: BP 115/78; PULSE 56; RESP 16; O2SAT 97
[2019-12-04 04:07] VITALS: BP 122/88; PULSE 78; RESP 19; O2SAT 99
== END 2019-12-04 04:08 | disposition home or self-care (01) ==
PROVIDERS: Emergency Provider Emergency Medicine; PCP Family Medicine
DX: R42 Dizziness and giddiness (principal); E86.0 Dehydration
CPT/HCPCS: 36415; 70450; 71046; 80048; 84484; 85025; 85610; 85730; 93005; 96361; 96374; 99284; A9270; J1885; J7030

== ENCOUNTER 2021-03-17 07:30 | Outpatient (RCR) | payer BC, SELFPAY ==
[2021-03-17] MEDS: RHO(D) IMMUNE GLOBULIN 300 MCG/2 ML SYRINGE IM (12:15)
== END 2021-06-15 23:59 | disposition home or self-care (01) ==
LOC: ANHLAB 07:30
PROVIDERS: PCP Family Medicine; Visit Provider Obstetrics & Gynecology
DX: Z29.13 Encounter for prophylactic Rho(D) immune globulin (principal); O36.0190 Maternal care for anti-D [Rh] antibodies, unspecified trimester, not applicable or unspecified; Z3A.00 Weeks of gestation of pregnancy not specified
CPT/HCPCS: 36415; 85461; 90384; 96372; J2790

== ENCOUNTER 2021-05-30 07:24 | Outpatient (CLI) | payer BC, SELFPAY ==
[2021-05-30 07:56] LABS: Hematocrit 31.2 % (37.0-47.0); Hemoglobin 10.5 g/dL (12.0-15.0); Mean Corpuscular HGB Conc 33.7 g/dl (32-36); Mean Corpuscular Hemoglobin 31.1 pg (26-34); Mean Corpuscular Volume 92.3 fl (80-100); Mean Platelet Volume 10.6 fl (7.4-10.4); Platelet Count Result 247 k/mm3 (150-375); Red Blood Count 3.38 M/mm3 (4.2-5.4); Red Cell Distribution Width 13.8 % (11.5-14.5); White Blood Count 10.2 K/mm3 (4.5-10.0)
[2021-05-31 13:03] LABS: Rapid Plasma Reagin Non-Reactive (NonReactive)
== END 2021-05-30 07:25 | disposition home or self-care (01) ==
LOC: ANHLAB 07:27
PROVIDERS: PCP Family Medicine; Visit Provider Obstetrics & Gynecology
DX: Z01.818 Encounter for other preprocedural examination (principal)
CPT/HCPCS: 36415; 85027; 86592; 86850; 86880; 86900; 86901; 86902

== ENCOUNTER 2021-06-01 09:51 | Inpatient (IN) | payer BC, SELFPAY ==
[2021-06-01] VITALS (37 sets, daily range): BP systolic 90–126; BP diastolic 42–84; PULSE 52–184; RESP 14–18; TEMP 36.4–36.9; O2SAT 98–100; BMI 31.8; BMI 31.6
[2021-06-01] MEDS: LACTATED RINGERS 1,000 ML 125 ML IV CONT ×2 (10:53→13:23)
--- NOTE | 2021-06-01 11:46 | LDADM ---
This patient, Paris Parra, was admitted to OB Post 116 on 06/01/21 at 09:51. Plans for repeat c/s pain management and were discussed with patient. Patient/family oriented to hospital policies and general routines including ID bracelet, bed and alarms, visiting hours, pain management, procedures, bathroom and other care routines, personal items, smoking policy, room service/diet and guest tray routines, infant security routines, and visiting hours. Patient/Family are encouraged to report perceived risks to care and to ask questions if they do not understand what they are told or what they should do. See [facility] for further documentation.
--- NOTE | 2021-06-01 11:56 | P.PNAN_ITS ---
Anes - Initial Pre Proc Eval Procedure: Operation Date: 06/01/21 12:00 Proposed Procedures p Repeat Section - Levon Koch MD Date/Time: 06/01/21 11:56 Surgeon: Levon Koch MD Pre Op Diagnosis: Repeat Patient Data Age: 30 Gender: F Height: 1.55 m Weight: 76 kg Last Vital Signs Pulse 93 06/01/21 11:51 BP 126/80 06/01/21 11:51 Allergies Allergy/AdvReac Type Severity Reaction Status Date / Time gluten Allergy Gastrointestinal Verified 11/30/19 14:43 Upset latex Allergy Itching Verified 11/30/19 14:43 pineapple Allergy Numbness Verified 11/30/19 14:43 Home Medications Medication Instructions Recorded Confirmed Type PNV cmb#95-ferrous fumarate-FA 1 tablet PO DAILY 10/24/19 06/01/21 History [] Patient hx anesthesia problems: none Family hx anesthesia problems: none Results Review: All pre-operative results and documents have been reviewed as part of the pre-operative evaluation. FOR[facility]LY [facility] Past Medical History Medical History Gestational hypertension Hx of migraines Surgical History Surgical History History of section Family History Family History Other No known health problems Social History Social History Smoking status: Never smoker Second hand tobacco smoke exposure: No Substance use: never Gender identity (if verbalized by the patient): Female Spiritual care concerns: No Anes - Eval Final PreProcedure Day of Procedure 06/01/21 11:56 Patient weight: overweight Heart: regular rate and rhythm Lungs: clear to auscultation Airway: Mallampati scale class 1 Neurological: alert and oriented Last oral intake: >/= 8 hours ASA classification: II Emergent: no Anesthetic plan: proceed Anesthesia type and monitoring: regional spinal and standard monitoring Results Review: All pre-operative results and documents have been reviewed as part of the pre-operative evaluation. Informed Consent: The patient's anesthetic plan and its attendant risks and benefits were discussed with the patient/family/POA. Questions were solicited and answers provided to the satisfaction of the patient/family/POA.
--- NOTE | 2021-06-01 11:59 | P.HP_ITS ---
H&P: HPI History of Present Illness Date/Time: 06/01/21 11:59 30 y/o at 39 6/7 weeks with prior cesareans, here for repeat . Good movement. GBS neg. No contractions. Chief Complaint: Here for c section. Review of Systems Review of Systems: All systems reviewed & are unremarkable except as noted in HPI and below PMFSH Past Medical History Medical History Gestational hypertension Hx of migraines Surgical History Surgical History History of section Family History Family History Other No known health problems Social History Social History Smoking status: Never smoker Second hand tobacco smoke exposure: No Substance use: never Gender identity (if verbalized by the patient): Female Spiritual care concerns: No Meds Home Medications and Allergies Home Medications Medication Instructions Recorded Confirmed Type PNV cmb#95-ferrous fumarate-FA 1 tablet PO DAILY 10/24/19 06/01/21 History [] Allergies Allergy/AdvReac Type Severity Reaction Status Date / Time gluten Allergy Gastrointestinal Verified 11/30/19 14:43 Upset latex Allergy Itching Verified 11/30/19 14:43 pineapple Allergy Numbness Verified 11/30/19 14:43 Vital Signs Vital Signs - 24 hr 06/01/21 10:23 06/01/21 11:51 Pulse Rate 99 93 Blood Pressure 125/81 126/80 Exam Const: Orientation/consciousness: patient oriented x3 Other: Well- developed, well-nourished female in no acute distress. Neck: Thyroid: thyroid normal Lymphatic: no lymphadenopathy noted (in neck, axilla or inguinal nodes) Resp: Effort & Inspection: normal respiratory effort Auscultation: clear to auscultation bilaterally Cardio: Rate: regular rate Rhythm: regular rhythm Heart sounds: S1 normal heart sound present and S2 normal heart sound present GI: Other: ABD: Soft, nontender, nondistended, gravid. NST reactive. TOCO: no contractions. No guarding or rebound tenderness. No hepatosplenomegaly. : General: Yes no CVA tenderness Other: Cervix closed, thick Back/Spine/Pelvis: Back: no CVA tenderness Skin: General skin exam: normal color and no rashes or lesions noted Neuro: General: patient oriented x3 Extrem: Other: Extremities: nontender with no edema Psych: Mental Status: mental status grossly normal Affect: normal affect Assessment and Plan Assessment and plan (1) History of section: Code(s): Z98.891 - History of uterine scar from previous surgery Status: Acute Assessment and Plan: A: IUP at 39 6/7 weeks with prior x 2. P: Desires repeat . She understands risks of surgery to include risks of anesthesia, risks of pain, infection, bleeding, blood products, thromboembolic phenomena and damage to adjacent structures such as bowel, bladder, ureters, blood vessels and nerves. She understands all these risks and elects to proceed with surgery.
--- NOTE | 2021-06-01 12:01 | WPDHPUPDATE1 ---
History and Physical Update Update Date/Time: 06/01/21 12:01 History and Physical has been reviewed, including an updated exam of the patient. There are NO changes in the patient's condition. Risks, benefits, and alternatives have been discussed and questions answered. Patient agrees to proceed with procedure.
[2021-06-01] MEDS: ceFAZolin 2 GM/D5W 50 ML 2 GM/50 ML BAG IVPB (13:57)
--- NOTE | 2021-06-01 14:48 | PM.OBPRVD ---
OB - Delivery Note Procedure Delivery date: 06/01/21 Procedure: Procedures Operation Date: 06/01/21 12:00 <No data on this case meets the specified criteria> Not true. This does: Repeat low transverse delivery Route of delivery: Specimen: Yes (cord blood) Quantitative Blood Loss (ml): 250 Anesthesia type: Spinal Disposition: PACU Complications: None Narrative: The patient was taken to the operating room where she was prepared and draped in the usual sterile fashion in dorsal supine position with a leftward tilt. She received cefazolin preoperatively. Spinal anesthesia was found to be adequate. A Pfannenstiel skin incision was made along the previous scar line and was carried through to the underlying layer of the fascia. The fascia was incised in the midline and the incision was extended laterally. The fascia was dissected free of the underlying rectus muscles. The rectus muscles were in the midline. The peritoneum was identified, tented up and entered sharply. The peritoneal incision was extended superiorly and inferiorly with good visualization of the bladder. The bladder blade was placed. The vesicouterine peritoneum was identified, tented up and entered sharply. The incision was extended laterally and the bladder flap was developed. The bladder blade was replaced. The uterus was then incised sharply in a transverse fashion along the lower uterine segment. The incision was extended laterally. The infant's head was delivered atraumatically to the sterile field, followed by the body. A loose nuchal cord x 2 was reduced and the nose and mouth were bulb suctioned. After a delay, the cord was clamped and cut. The infant was handed off the field. Cord blood was collected. The placenta was removed manually and was passed off the field. The uterus was exteriorized and cleared of all clots and debris. The uterine incision was reapproximated using 0 Monocryl in a running, locked fashion. Excellent hemostasis resulted as did excellent reapproximation of the normal anatomy. The uterus was returned the abdomen. The pelvis was irrigated copiously with warmed normal saline. Rigorous hemostasis was assured. The fascial layer was reapproximated using 0 Vicryl in a running fashion. The skin was closed with a running, subcuticular stitch of 4 0 Vicryl. Dermaflex was applied externally. Sponge, lap, needle and instrument counts were correct. The patient was taken to the recovery room in stable condition. The went to the nursery in stable condition. I was present and scrubbed the entire procedure. Baby Date of : 06/01/21 Time of : 14:27 Weeks of gestation at delivery: 39 Infant gender: Female Weight (pounds): 6 Weight (ounces): 5 presentation: vertex Placenta delivery description: Manual Removal and Normal Configuration Cord Vessel Description: 3 Vessels and Nuchal Cord (x2) score one minute: 8 score five minutes: 8
--- NOTE | 2021-06-01 14:48 | PM.OBDSVD ---
DS: Admitting Diagnosis Discharge Date 06/03/21 Admitting Diagnosis IUP at term Prior x 2 DS: Discharge Diagnosis Discharge Diagnosis (1) History of section: Code(s): Z98.891 - History of uterine scar from previous surgery Status: Acute OB - DS: Summary OB Procedures : None OB Procedures Intrapartum: OB Procedures: : None Peripartum Data Procedures: Procedures Operation Date: 06/01/21 12:00 <No data on this case meets the specified criteria> yes it does. Repeat LTCS Discharge Plan Discharge Attending physician on discharge: Levon Koch Discharging Clinician: Levon Koch Patient Disposition: Home, Self-Care Activity: may shower, may drive after 2 weeks and pelvic rest Diet: regular Wound Care Instructions: incision open to air Discharge Instructions: Call or return if temperature above 100.4? F, increased abdominal pain, increased vaginal bleeding or any new problems. Stand Alone Forms: General Discharge Information Follow-up/Referrals: Levon Koch MD [Physician] - 4 Weeks Discharge Medications: New ibuprofen 600 mg tablet 600 mg PO Q6H PRN (Reason: cramps) Qty: 30 RF: 0 ferrous sulfate 325 mg (65 mg iron) tablet 325 mg PO DAILY Qty: 30 RF: 0 hydrocodone-acetaminophen 5-325 mg tablet 1 - 2 tablet PO Q6H PRN (Reason: pain) Qty: 30 RF: 0 Continued PNV cmb#95-ferrous fumarate-FA [] 28 mg iron- 800 mcg Tablet 1 tablet PO DAILY RF: 0 Date of admission: 06/01/21 09:51 Primary Care Provider: Nallely,Marcela Reagan Admitting Provider: Levon Koch Attending physician on admission: Levon Koch Condition: Stable
[2021-06-01] MEDS: OXYTOCIN 30 UNITS/NS 500 ML 30 UNITS/500 ML BAG 125 UNITS IV CONT (16:18)
--- NOTE | 2021-06-01 17:20 | OBPPTRN ---
Patient transferred to post room # 282 via [id number]. Support person present. Oriented to unit, room, information board, rooming in, admission packet and security measures. Patient verbalizes understanding.
[2021-06-01] MEDS: KETOROLAC 30 MG/ML VIAL (*BKC) IV PUSH (17:42)
[2021-06-01] MEDS: DOCUSATE SODIUM 100 MG CAPSULE PO (20:08)
[2021-06-01] MEDS: DEXTROSE 5%/0.45% SOD CHL 1,000 ML 125 ML IV CONT (22:05)
[2021-06-01] MEDS: IBUPROFEN 600 MG TABLET PO (23:29)
[2021-06-02 04:05] VITALS: BP 90/52; PULSE 65; RESP 16; TEMP 36.8; O2SAT 97
[2021-06-02 05:39] LABS: Basophils Percent Auto 0.1 % (0.2-1.2); Hematocrit 27.8 % (37.0-47.0); Hemoglobin 9.2 g/dL (12.0-15.0); Immature Granulocyte Absolute 0.07 K/mm3 (0.00-0.031); Immature Granulocyte Percent A 0.4 % (0-0.5); Lymphocytes Absolute Auto 1.81 K/mm3 (0.9-3.2); Lymphocytes Percent Auto 11.3 % (18.3-44.2); Mean Corpuscular HGB Conc 33.1 g/dl (32-36); Mean Corpuscular Hemoglobin 31.3 pg (26-34); Mean Corpuscular Volume 94.6 fl (80-100); Mean Platelet Volume 11.4 fl (7.4-10.4); Monocytes Absolute Auto 1.6 K/mm3 (0.1-0.6); Monocytes Percent Auto 10.2 % (2.6-8.5); Neutrophils Absolute Auto 12.5 K/mm3 (1.3-6.7); Platelet Count Result 253 k/mm3 (150-375); Red Blood Count 2.94 M/mm3 (4.2-5.4); Red Cell Distribution Width 13.7 % (11.5-14.5)
[2021-06-02] MEDS: IBUPROFEN 600 MG TABLET PO ×3 (05:41→20:01)
[2021-06-02] MEDS: HYDROcodone/acetaminophen (*CRX) 5-325 MG TABLET 1 TAB PO ×5 (07:18→23:39)
[2021-06-02] MEDS: SIMETHICONE 80 MG TAB.CHEW PO ×5 (07:18→23:39)
[2021-06-02] MEDS: DOCUSATE SODIUM 100 MG CAPSULE PO ×2 (07:18→15:51)
[2021-06-02] MEDS: MULTIVIT/MIN/PREN/FOL AC/IRON TABLET 1 TAB PO (07:18)
[2021-06-02] MEDS: POLYSACCHARIDE IRON COMPLEX 150 MG CAPSULE PO ×2 (07:18→15:51)
[2021-06-02] MEDS: LANOLIN (LANSINOH) 7.5 GM CREAM 1 APPLIC TOPICAL (07:19)
[2021-06-02 08:00] VITALS: BP 102/68; PULSE 66; RESP 18; TEMP 36.6; TEMP 36.8; O2SAT 100
--- NOTE | 2021-06-02 08:51 | PM.OBPNVD ---
OB - PN: Subj Subjective Date/time seen: 06/02/21 08:51 Narrative: Pain OK. Tolerating diet. OB - PN: Obj Data Labs CBC & Chem 7: 06/02/21 04:14 Labs: Laboratory Results - last 24 hr 06/02/21 04:14 WBC 16.0 H RBC 2.94 L Hgb 9.2 L Hct 27.8 L MCV 94.6 MCH 31.3 MCHC 33.1 RDW 13.7 Plt Count 253 MPV 11.4 H Immature Gran % (Auto) 0.4 Neut % (Auto) 78.0 H Lymph % (Auto) 11.3 L Casey % (Auto) 10.2 H Eos % (Auto) 0.0 Baso % (Auto) 0.1 L Lymph # (Auto) 1.81 Casey # (Auto) 1.6 H Eos # (Auto) 0.0 Baso # (Auto) 0.0 Abs Immat Gran (auto) 0.07 H Absolute Neuts (auto) 12.5 H Absolute Nucleated RBC 0.0 Nucleated RBC % 0.0 OB - PN A/P Plan Comments: A: POD#1, doing well. P: Routine care. Exam Narrative: AVSS I/O OK ABD soft, nontender, fundus firm. Incision c/d/i. EXT nontender
--- NOTE | 2021-06-02 09:24 | WPDANLDPN2 ---
Anes-Prog Note L&D Date/Time: 06/02/21 09:24 Comfortable throughout: section Neuraxial method: spinal Epidural/Spinal procedure site: clean & non-tender Neuro status: Neuro function grossly intact. Cardiovascular status: normal Respiratory status: normal Airway patency: baseline Mental status: baseline Post-Op hydration status: normal Vital Signs: Last Vital Signs Temp 36.8 C 06/02/21 08:00 Pulse 66 06/02/21 08:00 Resp 18 06/02/21 08:00 BP 102/68 06/02/21 08:00 Pulse Ox 100 06/02/21 08:00 Pain score (VAS): 03/09 I/O: Intake & Output 06/01/21 06/02/21 06/02/21 23:59 07:59 15:59 Intake Total 1480 500 600 Output Total 1150 1550 400 Balance 330 -1050 200 Post-procedural complaints: pruritis mild, no treatment Patient feedback: Patient satisfied with anesthetic care.
--- NOTE | 2021-06-02 09:25 | WPDANLDNPN2 ---
Anes-Prog Note L&D-Neuraxial Date/Time: 06/02/21 09:25 Neuraxial medications: intrathecal PF morphine Opiod-related complaints: none Patient feedback: Patient satisfied with post-operative pain management.
[2021-06-02 11:31] VITALS: BP 96/55; PULSE 66; RESP 16; TEMP 36.4; O2SAT 99
[2021-06-02 19:00] VITALS: BP 101/64; PULSE 81; RESP 18; TEMP 36.7
[2021-06-03] MEDS: SIMETHICONE 80 MG TAB.CHEW PO ×2 (05:09→08:13)
[2021-06-03] MEDS: IBUPROFEN 600 MG TABLET PO ×2 (05:09→11:42)
[2021-06-03] MEDS: HYDROcodone/acetaminophen (*CRX) 5-325 MG TABLET 1 TAB PO ×4 (05:18→15:55)
[2021-06-03 07:15] VITALS: BP 115/62; PULSE 77; RESP 20; TEMP 36.1; O2SAT 100
[2021-06-03] MEDS: POLYSACCHARIDE IRON COMPLEX 150 MG CAPSULE PO (08:12)
[2021-06-03] MEDS: MULTIVIT/MIN/PREN/FOL AC/IRON TABLET 1 TAB PO (08:13)
[2021-06-03] MEDS: DOCUSATE SODIUM 100 MG CAPSULE PO (08:13)
--- NOTE | 2021-06-03 08:44 | PM.OBPNVD ---
OB - PN: Subj Subjective Date/time seen: 06/03/21 08:44 Narrative: Pain OK. Tolerating diet. Would like to go home. OB - PN: Obj Data Labs CBC & Chem 7: 06/02/21 04:14 OB - PN A/P Plan Comments: A: POD#2, doing well. P: Home to f/u 4 weeks. Exam Narrative: AVSS ABD soft, nontender, fundus firm. Incision c/d/i. EXT nontender
--- NOTE | 2021-06-03 08:46 | PC.NURSE ---
On 06/03/21, the student, Subha Rodriguez, provided care and completed [facility] documentation on this patient. I have reviewed the student's documentation and agree with the findings.
--- NOTE | 2021-06-03 10:00 | PC.NURSE ---
Self care and infant care discharge instructions given to pt. including follow up visit date and time. Pt. verbalized understanding. No questions or concerns voiced. Very pleasant and cooperative.
[2021-06-04 10:54] VITALS: BP 122/77; PULSE 82; RESP 20; TEMP 37.2; O2SAT 100
== END 2021-06-03 16:00 | disposition home or self-care (01) | DRG 788 ==
LOC: ANHOBPP 09:56 → ANHOB2 17:43
PROVIDERS: Admitting Provider Obstetrics & Gynecology; PCP Family Medicine; Visit Provider Obstetrics & Gynecology
PROC: 10D00Z1 Extraction of Products of Conception, Low, Open Approach (ICD-10-PCS; CPT 59514; principal; 2021-06-01 12:00)
DX: O34.211 Maternal care for low transverse scar from previous cesarean delivery (principal); Z37.0 Single live birth; Z3A.39 39 weeks gestation of pregnancy; O13.4 Gestational [pregnancy-induced] hypertension without significant proteinuria, complicating childbirth
CPT/HCPCS: 36415; 85025; A9270; J0131; J0690; J1100; J1885; J2274; J2370; J2405; J2590; J7120